=== PATIENT | female | born 1985 | race Caucasian/White ===

== ENCOUNTER 2021-10-17 23:46 | Emergency (ER) | payer OTHER, MEDICAID ==
[~2021-10-17] VITALS: Ht 162.6 cm; Wt 90.7 kg
--- NOTE | 2021-10-17 23:46 | NUR ---
Placed in room 1 . Placed on monitoring coordinator, blood pressure machine and pulse oximeter. To gown for exam. Side rails up. Report given to Shiraz MOMIN(reg).
[2021-10-17 23:48] VITALS: BP_SYST 123
--- NOTE | 2021-10-17 23:50 | NUR ---
JASON Huston at bedside examining patient.
[2021-10-17] MEDS ORDERED: LORazepam 2 MG/ML VIAL ONE (23:56)
[2021-10-18] MEDS ORDERED: HALOPERIDOL LACTATE 5 MG/ML VIAL IVP ONE ×2 (00:15→00:30)
[2021-10-18] MEDS ORDERED: LORazepam 2 MG/ML VIAL IVP ONE ×2 (00:15)
[2021-10-18 00:40] LABS: BASOPHILS # (AUTO) 0.1 K/uL (0.0-0.2); BASOPHILS % (AUTO) 0.9 % (0.0-2.0); EOSINOPHILS # (AUTO) 0.1 K/uL (0.0-0.4); HEMATOCRIT 38.1 % (36-48); LYMPHOCYTES # (AUTO) 2.8 K/uL (1.0-5.5); LYMPHOCYTES % (AUTO) 25.8 % (20.5-51.5); MEAN CORPUSCULAR HEMOGLOBIN 31 pg (27-31); MEAN CORPUSCULAR HGB CONC 34 % (32-36); MEAN CORPUSCULAR VOLUME 92 fL (79.0-98.0); MONOCYTES # (AUTO) 0.7 K/uL (0.0-1.0); MONOCYTES % (AUTO) 6.8 % (1.7-9.3); NEUTROPHILS # (AUTO) 7.2 K/uL (1.8-7.7); NEUTROPHILS % (AUTO) 65.5 % (40.0-70.0); PLATELET COUNT (AUTO) 220 K/uL (130-430); RED BLOOD CELL COUNT(AUTO) 4.15 MIL/uL (4.2-6.2); RED CELL DISTRIBUTION WIDTH 13.4 % (9.0-15.0)
--- NOTE | 2021-10-18 00:42 | NUR ---
DELPHINE PETERSON PT BIBA AOX1 YELPING AND SZ PRECATIONS. PT FAMILY AT BEDSIDE. PT HAS SOFT RETRAINTS, AND MEDICATED. WILL MONITOR
[2021-10-18 00:58] LABS: ANION GAP 9 (5-15); CALCIUM 8.4 mg/dL (8.4-11.0); CHLORIDE 109 mmol/L (98-107); CREATININE 1.06 mg/dL (0.55-1.30); GLUCOSE 118 mg/dL (70-99); POTASSIUM 3.5 mmol/L (3.5-5.1); SODIUM SERUM 139 mmol/L (136-145); UREA NITROGEN, BLOOD 9 mg/dL (8-21)
[2021-10-18 01:06] LABS: ALANINE AMINOTRANSFERASE 34 U/L (12-78); ALBUMIN 3.4 g/dL (3.4-4.8); ALCOHOL, BLOOD 283 mg/dL (<10); ASPARTATE AMINOTRANSFERASE 23 U/L (10-37); TOTAL BILIRUBIN 0.1 mg/dL (0.0-1.0)
[2021-10-18 01:09] LABS: GFR AFRICAN AMERICAN 76 mL/min (>90)
[2021-10-18 01:10] LABS: ACETAMINOPHEN < 1 ug/mL (1-30)
[2021-10-18 01:25] LABS: INR 0.9 (0.8-1.2); PROTHROMBIN TIME 9.8 SECS (9.5-12.5)
--- NOTE | 2021-10-18 01:45 | NUR ---
URINE PREG NEGATIVE
[2021-10-18 02:32] LABS: BARBITURATE, URINE NEGATIVE (NEG <=200); BENZODIAZEPINE, URINE NEGATIVE (NEG <=150); CANNABINOID, URINE NEGATIVE (NEG <=50); COCAINE, URINE NEGATIVE (NEG <=150); METHAMPHETAMINES SCREEN,URINE NEGATIVE (NEG <=500); OPIATE, URINE NEGATIVE (NEG <=100); PHENCYCLIDINE SCREEN,URINE NEGATIVE (NEG <=25); UR TRICYCLIC ANTIDEPRESSANTS NEGATIVE (NEG <=300); URINE AMPHETAMINE NEGATIVE (NEG <=500); URINE METHADONE NEGATIVE (NEG <=200); URINE OXYCODONE SCREEN NEGATIVE (NEG <=100); URINE PROPOXYPHENE SCREEN NEGATIVE (NEG <=300)
[2021-10-18 06:11] VITALS: BP_SYST 101
--- NOTE | 2021-10-18 06:11 | NUR ---
Patient given written and verbal discharge instructions and verbalizes understanding. ER MD discussed with patient the results and treatment provided. Patient in stable condition. ID arm band removed. IV catheter removed intact and dressing applied, no active bleeding. Rx of alcohol dependecy program given. Patient educated on pain management and to follow up with PMD. Pain Scale . Opportunity for questions provided and answered. Medication side effect fact sheet provided.
== END 2021-10-18 06:11 | disposition home or self-care (01) ==
LOC: SED 23:46
DX: R56.9 Unspecified convulsions (principal); F10.129 Alcohol abuse with intoxication, unspecified; F17.200 Nicotine dependence, unspecified, uncomplicated; Z88.0 Allergy status to penicillin; Z88.2 Allergy status to sulfonamides; Z79.899 Other long term (current) drug therapy; Y90.6 Blood alcohol level of 120-199 mg/100 ml
CPT/HCPCS: 99291; 80307; 80053; 83735; 85025; 85610; 85730; 87040; 84484; 36415; 83605; 96374; 70450; 96375; 71045; 76376; G0482; J2060 ×2; J1630; G0480; G0481

== ENCOUNTER 2023-05-19 23:29 | Emergency (ER) | payer OTHER, MEDICAID ==
[~2023-05-19] VITALS: Ht 160 cm; Wt 83.9 kg
[2023-05-19 23:30] VITALS: BP_SYST 116; PULSE 158; RESP 18; TEMP 98; O2SAT 98
[2023-05-19 23:51] VITALS: TEMP 97.1
[2023-05-20 00:16] VITALS: BP_SYST 112; PULSE 150; RESP 23; O2SAT 95
[2023-05-20 00:35] LABS: BILIRUBIN,URINE NEGATIVE (NEGATIVE); BLOOD, URINE NEGATIVE (NEGATIVE); CLARITY/URINE CLEAR (CLEAR); COLOR,URINE YELLOW (YELLOW); GLUCOSE,URINE NEGATIVE (NEGATIVE); KETONES,URINE NEGATIVE (NEGATIVE); LEUKOCYTE ESTERASE ,URINE NEGATIVE (NEGATIVE); NITRITE, URINE NEGATIVE (NEGATIVE); PH,URINE 6.5 (5.0-8.0); PROTEIN URINE NEGATIVE (NEGATIVE); UROBILINOGEN,URINE 0.2 (0.2-1.0)
[2023-05-20 01:04] LABS: BARBITURATE, URINE NEGATIVE (NEG <=200); BENZODIAZEPINE, URINE NEGATIVE (NEG <=150); COCAINE, URINE NEGATIVE (NEG <=150); METHAMPHETAMINES SCREEN,URINE NEGATIVE (NEG <=500); URINE AMPHETAMINE NEGATIVE (NEG <=500); URINE METHADONE NEGATIVE (NEG <=200)
[2023-05-20 01:05] LABS: CANNABINOID, URINE NEGATIVE (NEG <=50); OPIATE, URINE NEGATIVE (NEG <=100); PHENCYCLIDINE SCREEN,URINE NEGATIVE (NEG <=25); UR TRICYCLIC ANTIDEPRESSANTS NEGATIVE (NEG <=300); URINE OXYCODONE SCREEN NEGATIVE (NEG <=100)
== END 2023-05-20 00:16 | disposition home or self-care (01) ==
LOC: SED 23:29
DX: R56.9 Unspecified convulsions (principal); F91.9 Conduct disorder, unspecified; Z88.0 Allergy status to penicillin; Z88.2 Allergy status to sulfonamides; Z79.899 Other long term (current) drug therapy
CPT/HCPCS: 80307; 81001; 81003; 99283